=== PATIENT | male | born 1975 | race Caucasian/White ===

== ENCOUNTER 2021-11-22 16:55 | Emergency (ER) | payer OTHER ==
[2021-11-22] MEDS ORDERED: Aspirin 81 MG Tab.Chew PO ONE (17:22)
[2021-11-22] MEDS ORDERED: Nitroglycerin 0.4 MG Tab.SL SL PRN (17:29)
[2021-11-22] MEDS ORDERED: Sodium Chloride 0.9% 1,000 ML IV SCH (17:30)
[2021-11-22] MEDS ORDERED: Potassium Chloride 20 MEQ Tab.ER PO ONE (18:38)
[2021-11-22] MEDS ORDERED: Magnesium Oxide 400 MG Tab PO ONE (18:38)
== END 2021-11-22 19:00 | disposition home or self-care (01) ==
LOC: JD.ED 16:55
DX: R07.9 Chest pain, unspecified (principal)
CPT/HCPCS: 36415; 71045; 80053; 83735; 84484; 85025; 85379; 85610; 99285; A9270